=== PATIENT | male | born 1950 | race Caucasian/White ===

== ENCOUNTER → 2020-09-24 | Outpatient (CLI) | payer OTHER ==
[~2020-09-24] MED LIST: 0.9 % SODIUM CHLORIDE 10 ML VIAL. ONE; BUPIVACAINE MPF 0.25% 10 ML VIAL. ONE; DEXAMETHASONE SOD PHOS 10 MG/ML VIAL. ONE; IOHEXOL 300 MG/ML 50 ML VIAL. ONE; LIDOCAINE 1% PF 30 ML VIAL. ONE
[2020-09-24 13:57] VITALS: BP 179/103
== END | disposition home or self-care (01) ==
LOC: SURG 13:37
PROVIDERS: ATTEND Anesthesiology
DX: M54.16 Radiculopathy, lumbar region (principal); G43.909 Migraine, unspecified, not intractable, without status migrainosus; M19.90 Unspecified osteoarthritis, unspecified site; Z96.642 Presence of left artificial hip joint; Z98.890 Other specified postprocedural states; Z79.899 Other long term (current) drug therapy
CPT/HCPCS: 64483; J1100; J3490; Q9967; 64484